=== PATIENT | female | born 1985 | race Caucasian/White ===

== ENCOUNTER 2018-04-25 05:35 | Emergency (ER) | payer BC ==
[~2018-04-25] VITALS: Ht 172.7 cm; Wt 72.7 kg
[2018-04-25 05:42] VITALS: Ht 172.7 cm; Wt 72.7 kg
[2018-04-25] MEDS ORDERED: CLEOCIN HCL300 MG PO (05:43)
[2018-04-25] MEDS ORDERED: NORMODYNE / TR200 MG PO (05:44)
[2018-04-25] MEDS ORDERED: COUGH SYRUP (05:44)
[2018-04-25] MEDS ORDERED: FLUTICASONE PRO16 GM NASAL (06:05)
[2018-04-25 06:45] VITALS: BP 122/68
== END 2018-04-25 06:46 | disposition home or self-care (01) ==
LOC: D.ER 05:35
DX: J01.90 Acute sinusitis, unspecified (principal); R09.89 Other specified symptoms and signs involving the circulatory and respiratory systems; I10 Essential (primary) hypertension